=== PATIENT | male | born 1970 | race Caucasian/White ===

== ENCOUNTER 2018-10-22 20:25 | Emergency (ER) | payer OTHER ==
[2018-10-22] MEDS ORDERED: Lidocaine 2% 20 ml MDV ONE (21:41)
[2018-10-22] MEDS ORDERED: Cephalexin 500 MG CAP ONE (22:20)
== END 2018-10-22 22:23 | disposition home or self-care (01) ==
LOC: MADERS 20:25
DX: S61.211A Laceration without foreign body of left index finger without damage to nail, initial encounter (principal); W26.0XXA Contact with knife, initial encounter
CPT/HCPCS: 12001; J2001